=== PATIENT | female | born 1960 | race Two or more races ===

== ENCOUNTER 2023-09-24 17:49 | Emergency (ER) | payer OTHER ==
[~2023-09-24] VITALS: Ht 152.4 cm; Wt 78.3 kg
[2023-09-24 18:16] VITALS: BP 118/64; PULSE 84; RESP 18; O2SAT 96
[2023-09-24] MEDS ORDERED: KETOROLAC TROMETH 60MG/2ML VIAL IM ONE (21:00)
[2023-09-24] MEDS ORDERED: IBUP-1455 PO (21:10)
== END 2023-09-25 00:02 | disposition home or self-care (01) ==
LOC: ER 17:49
DX: M25.512 Pain in left shoulder (principal); W51.XXXA Accidental striking against or bumped into by another person, initial encounter; Y93.89 Activity, other specified; Y92.69 Other specified industrial and construction area as the place of occurrence of the external cause; Y99.8 Other external cause status
CPT/HCPCS: 73030